=== PATIENT | male | born 1980 | race Caucasian/White ===

== ENCOUNTER 2023-11-14 15:52 | Emergency (ER) | payer SELFPAY ==
[2023-11-14 15:55] VITALS: BP 148/94
--- NOTE | 2023-11-14 16:18 | ED.GENMED ---
History of Present Illness
General
Chief Complaint: Head Injury
Source: patient and healthcare consultant
Exam Limitations: none
Time Seen by Provider: 11/14/23 16:06
Nursing documentation reviewed up to this point in time: agreed with
Travel History
Have you had any contact with someone who has COVID-19?: No
Do you have any symptoms of coronavirus? Fever > 100 degrees, chills, cough, shortness of breath, sore throat, loss of taste or smell, muscle aches, or headache?: No
History of Present Illness
History of Present Illness:
42-year-old male with past medical history of traumatic brain injury and brain tumor as well as brain surgery presenting to the emergency department today after a fall while working at [facility] where he hit his head on a shopping cart claims that he
slipped fell hit his forehead denies loss of consciousness did feel some nausea and lightheadedness apparently was not acting himself for few minutes after the event which prompted him to be sent to the ER for further assessment. He does not take
blood thinners denies any weakness at this point feels much better.
Review of Systems
Review of Systems
Allergies reviewed?: Yes
All Other Systems: ROS reviewed and negative except as documented in HPI and ROS
Phy Exam
Physical Exam
Physical Exam:
GENERAL: Alert , in no apparent distress
EYE: pupils equal and reactive
NECK: Supple, no significant adenopathy.
ENT: o/p clr, mmm.
CARDIAC: Regular rate and rhythm .
LUNGS: Clear breath sounds bilaterally, no acute respiratory distress, no wheezes/rales/rhonchi
ABDOMEN: Soft, without focal tenderness, no r/g, no cvat
NEUROLOGICAL: Alert and oriented, no focal neuro deficits out of 5 upper and lower extremity strength normal sensation with palpating bilaterally normal finger-nose and [id number] no pronator drift
SKIN: Warm and dry, skin intact.
MUSCULOSKELETAL: No edema, well perfused.
PSYCH: Normal and appropriate interaction.
Course
Orders/Labs/Results
Orders:
Orders
11/14/23 16:15
CT Head W/o Iv Contrast Urgent
Comment:
Reason For Exam: head injury, hx of brain surgery and TBI
Vital Signs
Initial and Last Documented VS:
Initial Vital Signs
Temp Pulse Resp BP Pulse Ox
98.0 F 96 16 148/94 98
11/14/23 15:55 11/14/23 15:55 11/14/23 15:55 11/14/23 15:55 11/14/23 15:55
Last Documented Vital Signs
Temp Pulse Resp BP Pulse Ox
98.0 F 96 16 148/94 98
11/14/23 15:55 11/14/23 15:55 11/14/23 15:55 11/14/23 15:55 11/14/23 15:55
MDM/Problems Addressed
MDM/Problems Addressed:
42-year-old male presenting to the emergency department today with concerns of a fall hitting his forehead on a shopping cart did not lose consciousness but did have nausea lightheadedness and according to other staff he was not acting himself. He
does have a history of previous brain injury and brain surgery concerning this plan for CT scan for further assessment. CT without acute findings stable for discharge return precautions given.
*Critical Care Note
Total Time (30-74mins, 75-104mins- exclusive of procedures): Not Applicable
ED Attending Note
-
Portions of this chart may have been created with voice recognition software.� Occasional wrong word or��sound alike� substitutions may have occurred due to the inherent limitations of voice recognition software.
Discharge Plan
Departure
Patient Disposition: Home (Routine Discharge)
Date of Disposition: 11/14/23
Time of Disposition: 17:10
Patient with high blood pressure during this ER visit?: No
Condition: Good
Covid-19: Not Applicable
Discharge Problem:
Fall, Mild closed head injury
Instructions: Head Injury in Adults (DC)
Referrals:
Fermin Thomson, [Family Provider] -
Activity Restrictions/Additional Instructions:
You came to the emergency department after hitting her head. Here had a reassuring CT scan you may have a mild concussion please rest over the next few days as symptoms will hopefully improve. If symptoms are ongoing please follow-up closely this
week. Return to the emergency department for any worsening, new or concerning symptoms.
Interventions
Interventions:
*Risk Screen - Suicide Last Done: 11/14/23 16:05
*General Assessment Last Done: 11/14/23 16:05
*Neglect/Abuse Screening Last Done: 11/14/23 16:05
ED- Fall Risk Assessment Last Done: 11/14/23 16:05
*ED COVID-19 Vaccine History Last Done: 11/14/23 15:55
ED- Neurological Assessment Last Done: 11/14/23 16:05
Discharge Date and Time
Print Language: TURKISH
== END 2023-11-14 17:33 | disposition home or self-care (01) ==
LOC: EMR 15:52
PROVIDERS: EMERGENCY PHYSICIAN Emergency Medicine; FAMILY PHYSICIAN Internal Medicine
DX: S09.90XA Unspecified injury of head, initial encounter (principal); W19.XXXA Unspecified fall, initial encounter; Z87.820 Personal history of traumatic brain injury
CPT/HCPCS: 99284; 70450